=== PATIENT | female | born 1985 | race Caucasian/White ===

== ENCOUNTER → 2016-07-28 | Outpatient (CLI) | payer BC ==
[~2016-07-28] MED LIST: PRENTAB26 PO
== END | disposition home or self-care (01) ==
LOC: C.LAB1850 09:19
PROVIDERS: ATTEND Obstetrics & Gynecology
DX: O24.410 Gestational diabetes mellitus in pregnancy, diet controlled (principal)

== ENCOUNTER → 2016-10-02 | Outpatient (CLI) | payer BC ==
[2016-10-02 12:19] LABS: PREG INTERNAL NEGATIVE QC NEG CLEAR BACKGROUND; PREG INTERNAL POSITIVE QC POS CONTROL LINE
== END | disposition home or self-care (01) ==
LOC: C.LAB1850 11:51
PROVIDERS: ATTEND Obstetrics & Gynecology
DX: Z30.9 Encounter for contraceptive management, unspecified (principal)

== ENCOUNTER → 2017-11-10 | Outpatient (CLI) | payer OTHER | END | disposition home or self-care (01) | LOC: C.PAPS 11:59 | PROVIDERS: ATTEND Obstetrics & Gynecology | DX: Z12.4 Encounter for screening for malignant neoplasm of cervix (principal) ==

== ENCOUNTER 2021-10-08 07:32 | Inpatient (IN) ==
[2021-10-08] MEDS ORDERED: OXYTOCIN 30 UNITS/500 ML BAG IV PRN ×3 (08:52→19:03)
--- NOTE | 2021-10-08 09:22 | History & Physical Report ---
Date of Service October 08, 2021 Assessment & Plan (1) Encounter for induction of labor: (2) Gestational diabetes mellitus (GDM) affecting : (3) Elderly multigravida: Plan: admit, iv, labs. start pitocin. hayes ripening balloon. fhts categ 1. Admission and Anticipated Discharge Date Admission Date: October 08, 2021 History of Present Illness Chief Complaint: planned induction Primary Care Provider: MIRIAM Duval 36yo at 40+wks egzachary presents to L&D for planned induction. No rom, vb. +FM. No ctx. PNC c/b 1. GDM, diet controlled. 2. AMA PNL rh pos, ri, gbs neg OBH: x 1 GYNH: nl paps, no stds. Allergies Allergy/AdvReac Type Severity Reaction Status Date / Time No Known Allergies Allergy Verified 10/07/21 09:44 Home Medications Medication Instructions Recorded Confirmed Type prenat.vits,tonya,cie-nvnw-lqvqd 1 tab PO HS 05/03/20 10/07/21 History acetone (urine) test (Ketone Urine #50 ea 03/29/21 10/07/21 Rx Test) blood sugar diagnostic (OneTouch #150 ea 03/29/21 10/07/21 Rx Verio test strips) blood-glucose meter (OneTouch #1 ea 03/29/21 10/07/21 Rx Verio Reflect Meter) lancets 33 gauge (OneTouch Delica #150 ea 03/29/21 10/07/21 Rx Plus Lancet) Patient History Medical History (Updated 10/08/21 @ 09:20 by Josselyn Cordova MD, FACOG) Anxiety Chemical DX LAST WEEK, UPCOMING HCG LEVEL RE-CHECK SEP 17 2020 AT [facility] History of chicken pox History of gestational diabetes Mucous in stools & HARD PEBBLE LIKE STOOLS - REASON FOR UPCOMING COLONOSCOPY Surgical History H/O oral surgery H/O rhinoplasty History of tonsillectomy and adenoidectomy Family History Mother Hypertension H/O thyroidectomy Father Sleep apnea Denies family history of Ovarian cancer Prostate cancer Breast cancer Colorectal cancer Social History (Updated 02/18/21 @ 09:05 by Marilee Little RN) Smoking Status: Never smoker Second Hand Exposure: No; Do You Dip or Chew Tobacco: No; Tobacco Cessation Education Requested by Patient: No Hx Alcohol Use: No Hx Substance Use: No Preferred Language: Greenlandic Communication Ability: Effective Visual Impairment: No Limitations Hearing Ability: Normal Buffer Chrome Required: No Beliefs That Will Affect Care: None marital status: marital status details: Sammy Gomes (33) [phone] Current Living Situation: Family Current Living Situation Comment: lives with family. No pets current occupational status: employed current occupation: [employer] Other Information That Helps Us Care for You: No Feels Safe at Home: Yes Safety Concerns: Feels Safe At This Time Assistive Devices: None Review of Systems as per Subjective / HPI Physical Exam Constitutional: WD/WN, vitals as above Respiratory: normal respiratory effort, lungs clear to auscultation Cardiovascular: Rate/Rhythm: regular rate and regular rhythm Gastrointestinal (Abdomen): soft gravid nt Musculoskeletal: no edema nontender calves Neurologic: grossly normal Psychiatric: A+Ox3, euthymic affect Genitourinary: Manual OB Exam: + cervical dilation (1.5), + cervical effacement 60% and + station -2 OB Exam Monitor Tracing: + external FHT monitor used, + external uterine monitor used (irreg), + category I and + normal FHT variability PROCEDURE: Hayes ripening balloon after informed consent. sse cx visualized, grasped on ant lip with ring forcep, hayes through os and balloon inflated with 40cc sterile water. Spec removed, hayes taped to leg. pt jackie well. Results & Data ([facility]) Vital Signs (Past 12 Hours) Vital Signs Temp Pulse Resp BP 10/08/21 07:51 98.1 F 20 10/08/21 07:42 79 132/64 Coding Level of Care Code None Diagnoses Encounter for induction of labor Z34.90 Gestational diabetes mellitus (GDM) affecting O24.419 Elderly multigravida O09.529 CPT Codes Misx Procedure Codes - 74825 Placement of cervical dilator: 72211 Placement of cervical dilator ([id number])
[2021-10-08] MEDS: LACTATED RINGER'S 1,000 ML IV PRN ×3 (09:26→17:36)
[2021-10-08 09:48] LABS: Hematocrit (blood only) 36.3 % (37-47); Hemoglobin 12.7 g/dL (12.0-16.0); Mean Corpuscular Hemoglobin 31.5 pg (25-34); Mean Corpuscular Volume 90.1 fL (80-100); Mean Platelet Volume 9.3 fL (7.4-10.4); Platelet Count 163 K/uL (130-400); RDW Coefficient of Variation 13.8 % (11.5-14.5); RDW Standard Deviation 45.3 fL (36.4-46.3); Red Blood Count 4.03 M/uL (4.2-5.4); White Blood Count 8.81 K/uL (4.8-10.8)
--- NOTE | 2021-10-08 14:18 | Labor Progress Brief Note ---
Date of Service October 08, 2021 Subjective feeling more ctx but not painful Assessment & Plan (1) Encounter for induction of labor: (2) Gestational diabetes mellitus (GDM) affecting : (3) Elderly multigravida: Plan: will see how arom helps progress. c/w pit. fhts categ 1. Admission and Anticipated Discharge Date Admission Date: October 08, 2021 Physical Exam Constitutional: WD/WN, vitals as above Genitourinary: Manual OB Exam: + cervical dilation 4 cm, + cervical effacement 60%, + station -2 and + amniotic fluid (arom) clear OB Exam Monitor Tracing: + external FHT monitor used, + external uterine monitor used (q2-3), + category I and + normal FHT variability balloon in vagina and deflated and removed Results & Data ([facility]) Vital Signs (Past 12 Hours) Vital Signs Temp Pulse Resp BP 10/08/21 13:59 98.4 F 10/08/21 13:42 83 131/71 10/08/21 12:30 95 H 116/65 10/08/21 11:57 97 H 117/65 10/08/21 11:01 98.2 F 20 10/08/21 10:51 80 131/74 10/08/21 09:27 85 126/72 10/08/21 07:51 98.1 F 20 10/08/21 07:42 79 132/64 Coding Level of Care Code None Diagnoses Encounter for induction of labor Z34.90 Gestational diabetes mellitus (GDM) affecting O24.419 Elderly multigravida O09.529
[2021-10-08] MEDS ORDERED: SODIUM CHLORIDE 0.9% INJ 10 ML VIAL ONE (15:52)
[2021-10-08] MEDS ORDERED: ePHEDrine sulfate 50 MG/ML AMP ONE (15:52)
[2021-10-08] MEDS ORDERED: BUPIVACAINE 0.25% 30 ML VIAL ONE ×2 (15:53→18:04)
[2021-10-08] MEDS ORDERED: fentaNYL citrate 100 MCG/2 ML VIAL ONE ×2 (15:53→18:04)
[2021-10-08] MEDS ORDERED: fentaNYL 2MCG/ML ROPIVACAINE 1.25MG/ML 100 ML BAG EPI ONE (15:53)
[2021-10-08] MEDS ORDERED: NALBUPHINE HCL INJ 10 MG/ML AMP IV PRN (16:27)
[2021-10-08] MEDS ORDERED: NALOXONE HCL 1 MG in SODIUM CHLORIDE 0.9% 1000ML 1,000 ML IV PRN (16:27)
[2021-10-08] MEDS ORDERED: ONDANSETRON INJ 2 MG/ML 2 ML VIAL IV PRN (16:27)
[2021-10-08] MEDS ORDERED: diphenhydrAMINE 50 MG/ML VIAL IV PRN (16:27)
[2021-10-08] MEDS ORDERED: ePHEDrine sulfate 50 MG/ML AMP IV PRN (16:27)
[2021-10-08] MEDS ORDERED: fentaNYL 2MCG/ML ROPIVACAINE 1.25MG/ML 100 ML BAG EPI PRN (16:27)
[2021-10-08] MEDS ORDERED: NALOXONE HCL 0.4 MG/1 ML VIAL/CARP IV PRN (16:27)
--- NOTE | 2021-10-08 16:27 | Anesthesiology Consultation ---
Date of Service October 08, 2021 Assessment & Plan (1) Encounter for pre-operative examination: Chart Review Chart Review: Acceptable Risk for Labor Epidural Consults Requested none ASA ASA2 Proposed Anesthesia Anesthesia Type: Labor Epidural Risk / Benefits Reviewed With: PT / POA / Parent / Guardian, Accepts Plan and Informed Consent Obtained History Height/Weight Height: 5 ft 6 in Weight: 63.796 kg Allergies Allergy/AdvReac Type Severity Reaction Status Date / Time No Known Allergies Allergy Verified 10/07/21 09:44 Medications Home Medications Medication Instructions Recorded Confirmed Last Taken prenat.vits,tonya,kpa-feqi-iwaly 1 tab PO HS 05/03/20 10/07/21 10/07/21 09:00 acetone (urine) test (Ketone Urine #50 ea 03/29/21 10/07/21 Unknown Test) blood sugar diagnostic (OneTouch #150 ea 03/29/21 10/07/21 Unknown Verio test strips) blood-glucose meter (OneTouch #1 ea 03/29/21 10/07/21 Unknown Verio Reflect Meter) lancets 33 gauge (OneTouch Delica #150 ea 03/29/21 10/07/21 Unknown Plus Lancet) Active Medications Generic Name Dose Route Start Last Admin Trade Name Freq PRN Reason Stop Dose Admin Oxytocin 30 units in 500 mls @ 9 mls/hr 10/08/21 08:52 10/08/21 12:30 Pitocin IV 10/10/21 08:51 0.54 units/hr .Q24H PRN 9 mls/hr Labor Induction/Augmentation Titration Protocol 0.54 UNITS/HR Lactated Ringer's 1,000 mls @ 125 mls/hr 10/08/21 08:52 10/08/21 15:33 Lr IV 10/10/21 08:51 125 mls/hr .Q8H PRN Administration L&D Protocol Protocol Past Medical History Medical History Anxiety Chemical DX LAST WEEK, UPCOMING HCG LEVEL RE-CHECK SEP 17 2020 AT [facility] History of chicken pox History of gestational diabetes Mucous in stools & HARD PEBBLE LIKE STOOLS - REASON FOR UPCOMING COLONOSCOPY Exercise / Class Metabolic Activity II 4-5 Yardwork/Stairs/Walk up hill Past Family History Family History Mother Hypertension H/O thyroidectomy Father Sleep apnea Denies family history of Ovarian cancer Prostate cancer Breast cancer Colorectal cancer Past Surgical History Surgical History H/O oral surgery H/O rhinoplasty History of tonsillectomy and adenoidectomy Past Anesthesia History No Hx of Anesthesia Complications and No Family Hx of Anesthesia Complications History of PONV No Hx of PONV and No Hx of Motion Sickness Social History Smoking Status: Never smoker Do You Dip or Chew Tobacco: No Hx Alcohol Use: No Alcohol type: beer Alcohol Intake Frequency Comment: not during Hx Substance Use: No substance use type: does not use Physical Exam Vital Signs Last Vital Signs Temp 98.4 F 10/08/21 13:59 Pulse 80 10/08/21 16:21 Resp 20 10/08/21 11:01 BP 121/61 10/08/21 16:21 Pulse Ox 100 10/08/21 16:20 ENMT Mouth: no dentition abnormality Thyromental Distance: > or= 3.5 Finger Breadths Mallampati Class: II Neck normal visual inspection Respiratory normal respiratory effort Auscultation: lungs clear to auscultation bilaterally Cardiovascular Rate/Rhythm: regular rate and regular rhythm Testing Laboratory Results 10/08/21 09:11 10/08/21 10/08/21 15:32 08:23 POC Glucose 67 L* 86
--- NOTE | 2021-10-08 18:57 | Communication Note ---
Date of Service: October 08, 2021 Patient stated having increasing labor pains. The epidural was bolused with 3mL of 0.25% bupivacaine and 50 mcg of fentanyl. VSS throughout.
--- NOTE | 2021-10-08 18:58 | Delivery Summary ---
Vaginal Delivery Summary Date of Service October 08, 2021 Vaginal Delivery Summary and 2nd Degree LAC The patient dilated to complete and pushed to deliver a viable female infant Apgars 9 and 9 via over 2nd degree perineal laceration. Mouth and nose bulb suctioned at perineum. Shoulders and body delivered with ease. Infant was vigorous and crying at . Cord clamped at 30 seconds of life and infant to maternal abdomen where the cord was then doubly clamped and cut. Placenta delivered spontaneously and intact, three-vessel cord. Hemostasis achieved with dilute pitocin and uterine massage and drainage of the bladder for approximately 500 cc under sterile conditions. Cervix and sulci intact. Laceration repaired in usual fashion with 3-0 vicryl in usual fashion. EBL 300 cc. Mother and baby stable in recovery. [facility] Vaginal Delivery Charge Delivery Type Details: and 2nd Degree LAC
[2021-10-08] MEDS ORDERED: oxyCODONE/ACETAMINOPHEN 5mg/325mg TAB PO PRN (19:03)
[2021-10-08] MEDS ORDERED: DIPHTHERIA/TETANUS/PERTUSSIS 0.5 ML SYR/VIAL IM ONE (19:03)
[2021-10-08] MEDS ORDERED: BENZOCAINE 20% AER SPR 82.5 GM CAN EXT PRN (19:03)
[2021-10-08] MEDS ORDERED: HYDROCORTISONE ACETATE 25 MG SUPP PR PRN (19:03)
[2021-10-08] MEDS ORDERED: ACETAMINOPHEN 325 MG TAB PO PRN (19:03)
[2021-10-08] MEDS ORDERED: OXYTOCIN 20 UNITS in LACTATED RINGER'S 1,000 ML IV SCH (19:45)
[2021-10-08] MEDS: DOCUSATE SODIUM 100 MG CAP PO SCH (21:50)
[2021-10-08] MEDS: IBUPROFEN 600 MG TAB PO PRN (23:34)
[2021-10-09] MEDS: IBUPROFEN 600 MG TAB PO PRN (06:34)
--- NOTE | 2021-10-09 06:58 | Obstetrical Progress Note ---
Date of Service October 09, 2021 Assessment & Plan (1) care and examination: stable, routine care. may consider dc later today and so instructions reviewed. f/u 6wk pp. breast/rhpos/ri. Day #:: 1 Subjective Ambulation: ambulating normally Voiding: no voiding problems Diet Tolerance:: regular diet Lochia:: Small Feeding Type:: breast feeding denies pain issues Constitutional: + as per Subjective / HPI Physical Exam Constitutional WD/WN, vitals as above Respiratory normal respiratory effort, lungs clear to auscultation Cardiovascular Rate/Rhythm: regular rate and regular rhythm Gastrointestinal (Abdomen) Inspection/Auscultation: abdomen normal to inspection Percussion/Palpation: abdomen soft Fundus firm 2cm down Musculoskeletal nt calves no edema Neurologic grossly normal Psychiatric A+Ox3, euthymic affect Results & Data ([facility]) Vital Signs (Past 12 Hours) Vital Signs Temp Pulse Pulse Resp BP BP Pulse Ox 10/09/21 04:30 98.1 F 80 18 117/75 97 10/08/21 23:35 98.4 F 79 18 128/78 98 10/08/21 22:00 98.2 F 85 18 122/79 97 10/08/21 21:30 98.4 F 18 10/08/21 21:00 85 133/71 10/08/21 20:55 98.4 F 16 10/08/21 20:25 16 10/08/21 19:55 16 10/08/21 19:52 83 125/69 10/08/21 19:40 18 10/08/21 19:27 86 122/66 10/08/21 19:25 16 10/08/21 19:11 91 H 129/81 10/08/21 19:10 18
[2021-10-09] MEDS: DOCUSATE SODIUM 100 MG CAP PO SCH (07:20)
[2021-10-09] MEDS ORDERED: PRENATAL VITAMIN 1 TAB PO SCH (08:00)
== END 2021-10-09 20:00 | disposition home or self-care (01) | DRG 807 ==
LOC: 4S1 07:32 → 4S2 22:00
DX: O48.0 Post-term pregnancy; Z37.0 Single live birth; O70.1 Second degree perineal laceration during delivery; O24.419 Gestational diabetes mellitus in pregnancy, unspecified control; Z3A.40 40 weeks gestation of pregnancy